=== PATIENT | female | born 1980 | race Caucasian/White ===

== ENCOUNTER 2017-07-02 13:12 | Emergency (ER) | END 2017-07-02 17:23 | disposition home or self-care (01) | DX: E86.0 Dehydration (principal); E87.2 Acidosis; C50.919 Malignant neoplasm of unspecified site of unspecified female breast | CPT/HCPCS: 36415; 71010; 71275; 80053; 81001; 83605; 83880; 84484; 84703; 85025; 85610; 85730; 87040; 87086; 93005; J7030; J7040; Q9967; Z7502; Z7610 ==

== ENCOUNTER 2017-10-20 08:00 | Inpatient (IN) | payer OTHER ==
[2017-10-19 14:49] VITALS: Ht 161.3 cm; Wt 50.3 kg
[2017-10-20] VITALS (16 sets, daily range): BP systolic 121–155; BP diastolic 67–88; PULSE 52–98; RESP 16–20
[~2017-10-20] VITALS: Ht 161.3 cm; Wt 50.3 kg
[~2017-10-20 08:00] MED LIST: CEFAZOLIN 2 GM/50 ML (PMX) 50 ML IVPB SCH; IBUP-725; PREN1TAB49 PO; SOD CHLORIDE 0.9% 1,000 ML IV SCH; [UNRECOGNIZED DRUG - CODE]
[2017-10-20 10:32] LABS: BASOPHIL # 0.1 10^3/ul (0.0-0.1); BASOPHILS % 0.8 % (0.0-2.0); EOSINOPHILS # 0.1 10^3/ul (0.0-0.5); EOSINOPHILS % 2.2 % (0.0-7.0); HEMATOCRIT 30.4 % (37.0-47.0); HEMOGLOBIN 9.7 g/dl (12.0-16.0); LYMPHOCYTES # 2.2 10^3/ul (0.8-2.9); LYMPHOCYTES % 37.4 % (15.0-51.0); MEAN CORPUSCULAR HEMOGLOBIN 28.2 pg (29.0-33.0); MEAN CORPUSCULAR HGB CONC 31.9 g/dl (32.0-37.0); MEAN CORPUSCULAR VOLUME 88.4 fl (82.0-101.0); MEAN PLATELET VOLUME 10.5 fl (7.4-10.4); MONOCYTE # 0.5 10^3/ul (0.3-0.9); MONOCYTES % 8.1 % (0.0-11.0); NEUTROPHIL # 3.1 10^3/ul (1.6-7.5); NEUTROPHILS % 51.3 % (39.0-77.0); PLATELET COUNT 408 10^3/UL (140-415); RED BLOOD COUNT 3.44 10^6/ul (4.20-5.40); RED CELL DISTRIBUTION WIDTH 16.2 % (11.5-14.5); WHITE BLOOD COUNT 5.9 10^3/ul (4.8-10.8)
[2017-10-20 10:35] LABS: INR 0.98; PROTIME 13.1 Sec (11.9-14.9)
[2017-10-20 10:38] LABS: ALBUMIN 4.4 g/dl (3.3-4.9); ALBUMIN/GLOBULIN RATIO 1.15; BILIRUBIN,INDIRECT 0.3 mg/dl (0-1.1); BILIRUBIN,TOTAL 0.3 mg/dl (0.2-1.3); TOTAL PROTEIN 8.2 g/dl (6.1-8.1)
[2017-10-20 10:39] LABS: CALCIUM 9.9 mg/dl (8.4-10.2); CREATININE 0.75 mg/dl (0.44-1.00); POTASSIUM 3.9 mmol/L (3.5-5.1)
[2017-10-20] MEDS ORDERED: MIDAZOLAM 1 MG/ML 2 ML INJ ONE (13:59)
[2017-10-20] MEDS ORDERED: METOCLOPRAMIDE 10 MG INJ ONE (13:59)
[2017-10-20] MEDS ORDERED: PROPOFOL 20 ML ONE (14:08)
[2017-10-20] MEDS ORDERED: NEOSTIGMINE 3 MG/3 ML SYRINGE ONE (14:08)
[2017-10-20] MEDS ORDERED: ROCURONIUM 50 MG INJ ONE (14:08)
[2017-10-20] MEDS ORDERED: CEFAZOLIN 1 GM INJ ONE (14:09)
[2017-10-20] MEDS ORDERED: ONDANSETRON 4 MG INJ ONE (14:43)
[2017-10-20] MEDS ORDERED: DIPHENHYDRAMINE 50 MG INJ IV PRN (15:00)
[2017-10-20] MEDS ORDERED: OXYCODONE/ACETAMINOPHEN (5/325) TAB PO PRN (15:00)
[2017-10-20] MEDS ORDERED: HYDROmorphONE (0.2 MG/ML) 10ML SYG IV PRN ×2 (15:00)
[2017-10-20] MEDS ORDERED: MEPERIDINE 25 MG INJ IV PRN (15:00)
[2017-10-20] MEDS ORDERED: ONDANSETRON 4 MG INJ IV PRN (15:00)
[2017-10-20] MEDS ORDERED: METOCLOPRAMIDE 10 MG INJ IV PRN (15:00)
--- NOTE | 2017-10-20 15:25 | SIPON ---
Date/Time of Note Date/Time of Note DATE: 10/20/17 TIME: 15:24 Operative Report Preoperative Diagnosis Locally advanced right breast cancer Postoperative Diagnosis Same Operation/Procedure Performed Right modified radical mastectomy Surgeon see signature line medical assistant supervisor Dr Levi Anesthesia: general Estimated blood loss: 10 - 50 ml's Transfusion Required none Specimen Right breast and axillary contents Grafts/Implants none Complications none BEAU TOUSSAINT MD Oct 20, 2017 15:25
[2017-10-20] MEDS ORDERED: ACETAMINOPHEN 1000MG/100ML IV 100 ML IVPB PRN (15:30)
[2017-10-20] MEDS: ONDANSETRON 4 MG INJ IV PRN ×2 (15:40→21:37)
[2017-10-20] MEDS: HYDROmorphONE (0.2 MG/ML) 10ML SYG IV PRN ×3 (16:07→16:37)
--- NOTE | 2017-10-20 16:26 | OPR ---
DATE OF OPERATION: 10/20/2017 PREOPERATIVE DIAGNOSIS: Locally advanced invasive cancer, right breast. POSTOPERATIVE DIAGNOSIS: Locally advanced invasive cancer, right breast. PROCEDURE: Right modified radical mastectomy. ANESTHESIA: General. ANESTHESIOLOGIST: Dr. Christopher. SURGEON: Gabriele Rubin MD ASSISTANTS: Dr. Kevon Whitehead and Dr. David Lawrence INDICATIONS FOR PROCEDURE: The patient is a very unfortunate 36-year-old female who developed an en larging mass in her right breast. She did not initially seek medical attention for reasons that are not clear. Eventually, she underwent evaluation, the diagnosis was made and she was treated with n eoadjuvant chemotherapy with only a fair response. She now presents for definitive surgical treatme nt. She is consented for right modified radical mastectomy. DESCRIPTION OF PROCEDURE: The patient was brought to the operating theater, placed under general an esthesia. The right breast and axillary region were prepped and draped in the usual sterile fashion . The large mass was palpated. An elliptical incision was demarcated with marking pen around the n ipple-areolar complex, including a significant portion of the skin of the breast. The incision was carried out with a 15 blade scalpel. Subcutaneous tissue was dissected with cautery. The skin edge s were then elevated with Allis-Duke clamps, and skin flaps were created in a sequential fashion us ing cautery, first superiorly to the clavicle, then nearly to the sternal border, inferiorly to the inframammary fold and laterally until the latissimus dorsi muscle had been identified throughout its course. Mastectomy then took place from medial to lateral using cautery. At the border of the pec toralis major muscle, the pectoralis minor muscle was identified. The clavipectoral fascia was inci sed with blunt dissection along the chest wall. The long thoracic nerve was identified and kept out of harm's way. More superiorly, the axillary vein was identified and dissected from medial to late ral. The thoracodorsal neurovascular bundle was identified and kept out of harm's way. Node-bearin g tissue between the 2 nerves was then harvested with the LigaSure device. Final connective tissue attachment to the latissimus dorsi muscle was then transected with cautery. Specimen was removed, o riented and sent for permanent pathologic analysis. Additional axillary lymph nodes were harvested separately, also with the LigaSure device and sent separately for pathologic analysis. The wound wa s then irrigated. Minimal bleeding was controlled with cautery. Two #10 flat Wenceslao-Onofre drains were then brought through the right mid axillary line. One was cut to size and laid within the axil la. The other was laid over the pectoralis major muscle. Both drains were secured in place with 2- 0 nylon suture. The wound was further irrigated. Minimal bleeding was controlled with cautery, and the skin was reapproximated with a deep dermal layer of 4-0 Vicryl sutures, followed by final skin approximation with 5-0 PDS suture. Dermabond was then applied. The patient tolerated the procedure well. The estimated blood loss was 50 mL. There were no complications, and the patient was transp orted in stable condition to the recovery room where a circumferential compression dressing was appl ied. Dictated By: GABRIELE RUBIN MD TL/ROSLYN Conf#: [id number] DID#: [id number] CC: GABRIELE RUBIN MD; DAVID LAWRENCE MD; KEVON WHITEHEAD MD;*EndCC*
--- NOTE | 2017-10-20 17:06 | HP ---
Date/Time of Note Date/Time of Note DATE: 10/20/17 TIME: 16:15 Assessment/Plan VTE Prophylaxis VTE Prophylaxis Intervention: SCD's Lines/Catheters IV Catheter Type (from Nrsg): Peripheral IV Assessment/Plan Assessment/Plan 36-year-old female: 1. Status post radical right mastectomy, POD#0 Patient has [address], dressing in place. Pain control Follow-up recommendations from Dr. Rubin. 2. Right breast carcinoma, HER-2 positive, status post neoadjuvant chemotherapy as of 08/22/17. Patient has a persistent large mass and right axillary metastasis per notes from from surgery, requiring for her to have a radical right mastectomy. Follow-up with outpatient oncologist at discharge. 3. Anxiety disorder: Benzodiazepines as needed. Prophylaxis: SCDs for DVT prophylaxis, Pepcid for GI prophylaxis Disposition: Admit to [facility], observation overnight, pain control. HPI/ROS Admit Date/Time Admit Date/Time Oct 20, 2017 at 08:33 Hx of Present Illness Chief complaint: Elective right mastectomy History of presenting illness: 36-year-old female with history of anxiety, recent diagnosis of right breast mass and right breast cancer HER-2 positive, status post neoadjuvant chemotherapy that she has completed as of 08/22/17 and was brought in for a right radical mastectomy which was done today by Dr. Rubin. Patient is being admitted to medical surgical bed postoperatively, mainly for pain control. She has 2 MILLY drain on her right chest wall postmastectomy. She does not have any other significant medical diagnoses except for reported anxiety. ROS Constitutional: other (Postop pain, right chest wall status post right mastectomy) Eyes: no complaints ENT: no complaints Respiratory: no complaints Cardiovascular: no complaints Gastrointestinal: no complaints Genitourinary: no complaints Musculoskeletal: no complaints Skin: no complaints Neurologic: no complaints Endocrine: no complaints Lymphatic: no complaints Psychological: anxiety PMH/Family/Social Past Medical History Anxiety disorder Right breast CA large breast mass and metastasis to the right axilla Past Surgical History Status post Family History Significant Family History: no pertinent family hx Social History Alcohol Use: none Smoking Status: Current every day smoker (1 pack per week) Drug Use: none Exam/Review of Systems Vital Signs Vitals Vital Signs Date Time Temp Pulse Resp B/P Pulse Ox O2 Delivery O2 Flow Rate FiO2 10/20/17 16:04 52 16 147/74 100 Room Air 10/20/17 15:30 98.1 Exam Constitutional: other (Sedated coming out of anesthesia) Psych: no complaints Respiratory: clear to auscultation, normal air movement Cardiovascular: nl pulses, regular rate and rhythm Gastrointestinal: non-tender, soft Musculoskeletal: nl extremities to inspection Extremities: normal pulses, other (No edema, clubbing or cyanosis) Neurological: AIRCRAFT ARMORER II-XII intact, lethargic (Still under some sedation), nl mental status, nl speech Additional Comments Status post right mastectomy, [address], dressing in place on the right chest wall. Labs Result Diagram: 10/20/17 0956 10/20/17 0956 Medications Medications Current Medications Sodium Chloride (NS) 1,000 ml @ 75 mls/hr [id number] IV ; Start 10/20/17 at 06:30 ; Stop 10/20/17 at 23:00 Ondansetron HCl 4 mg 4 mg Q6H PRN IV NAUSEA AND/OR VOMITING Last administered on 10/20/17t 15:40; Admin Dose 4 MG; Start 10/20/17 at 15:30 Potassium Chloride/Dextrose/ Sod Cl (D5-1/2ns + KCl 20 Meq) 1,000 ml @ 125 mls/ hr Q8H IV ; Start 10/20/17 at 15:26 Morphine Sulfate 2 mg 2 mg Q1H PRN IV PAIN; Start 10/20/17 at 15:30 Acetaminophen (Ofirmev 1000mg/ 100ml Iv) 100 ml @ 400 mls/hr Q6H PRN IVPB PAIN ; Start 10/20/17 at 15:30 Procedures Procedures Status post right radical mastectomy VIRGINIA CARMONA Oct 20, 2017 16:25
[2017-10-20] MEDS: D5W-0.45 NACL + KCL 20 MEQ 1,000 ML IV SCH ×2 (17:41→23:26)
[2017-10-20] MEDS: FAMOTIDINE 20 MG TAB PO SCH (21:00)
[2017-10-20] MEDS: morphine 2 MG INJ IV PRN (23:31)
[2017-10-21] VITALS (11 sets, daily range): BP systolic 107–138; BP diastolic 58–78; PULSE 60–110; RESP 17–20
[2017-10-21] MEDS: D5W-0.45 NACL + KCL 20 MEQ 1,000 ML IV SCH ×4 (02:08→23:26)
[2017-10-21] MEDS: morphine 2 MG INJ IV PRN ×2 (04:15→10:32)
[2017-10-21 05:21] LABS: ABNORMAL IP MESSAGE 1; BASOPHILS % 0.2 % (0.0-2.0); HEMATOCRIT 18.9 % (37.0-47.0); LYMPHOCYTES # 1.3 10^3/ul (0.8-2.9); MEAN CORPUSCULAR HEMOGLOBIN 28.1 pg (29.0-33.0); MEAN CORPUSCULAR HGB CONC 32.3 g/dl (32.0-37.0); MEAN CORPUSCULAR VOLUME 87.1 fl (82.0-101.0); MEAN PLATELET VOLUME 10.5 fl (7.4-10.4); MONOCYTE # 0.9 10^3/ul (0.3-0.9); MONOCYTES % 6.7 % (0.0-11.0); NEUTROPHIL # 10.7 10^3/ul (1.6-7.5); NEUTROPHILS % 82.9 % (39.0-77.0); PLATELET COUNT 342 10^3/UL (140-415); RED BLOOD COUNT 2.17 10^6/ul (4.20-5.40); WHITE BLOOD COUNT 12.9 10^3/ul (4.8-10.8)
[2017-10-21 05:45] LABS: HEMOGLOBIN 6.1 g/dl (12.0-16.0); POSITIVE DIFF @See below
[2017-10-21 05:59] LABS: CALCIUM 7.7 mg/dl (8.4-10.2); CREATININE 0.72 mg/dl (0.44-1.00); POTASSIUM 4.3 mmol/L (3.5-5.1)
[2017-10-21 07:35] LABS: ANISOCYTOSIS 1+ (0-0); MICROCYTOSIS 1+ (0-0); MONOCYTES % (M) 1 % (0-11); OVALOCYTES 1+ (0-0); PLATELET ESTIMATE NORMAL; POIKILOCYTOSIS 1+ (0-0)
[2017-10-21] MEDS: FAMOTIDINE 20 MG TAB PO SCH ×2 (08:16→20:36)
[2017-10-21] MEDS ORDERED: MAGNESIUM CHLORIDE (SR) 64 MG TAB PO SCH (10:00)
[2017-10-21] MEDS ORDERED: MAGNESIUM SULFATE 2 GM/50 ML 50 ML IVPB ONE ×2 (10:00→21:00)
--- NOTE | 2017-10-21 10:04 | PN ---
Date/Time of Note Date/Time of Note DATE: 10/21/17 TIME: 10:01 Assessment/Plan VTE Prophylaxis VTE Prophylaxis Intervention: SCD's Lines/Catheters IV Catheter Type (from Nrsg): Peripheral IV Central line still needed: No Urinary Cath still in place: No Assessment/Plan Assessment/Plan 36-year-old female: 1. Status post radical right mastectomy, POD#1 Patient has [address], dressing in place. Pain control Follow-up recommendations from Dr. Childress. As her hemoglobin dropped to 6.0, she will be receiving 2 units of packed red blood cells. 2. Right breast carcinoma, HER-2 positive, status post neoadjuvant chemotherapy as of 08/22/17. Patient has a persistent large mass and right axillary metastasis per notes from from surgery, requiring for her to have a radical right mastectomy. Follow-up with outpatient oncologist at discharge. 3. Anxiety disorder: Benzodiazepines as needed. Prophylaxis: SCDs for DVT prophylaxis, Pepcid for GI prophylaxis Disposition: The patient will remain in the hospital for another night. Obtain repeat hemoglobin in the morning. Continue pain management. Subjective 24 Hr Interval Summary Free Text/Dictation Patient complained of overall body pain and inability to sleep. She feels very weak after surgery. Sporting her hemoglobin dropped to 6.0. This was repeated with the laboratory. Will be receiving Benadryl and Tylenol as well as 2 units of packed red blood cells. Furthermore, her magnesium level was slightly low at 1.6 and this will be replaced intravenously as well. Her was at the bedside and the plan of care was updated with the both of them. Constitutional: other (weak) Eyes: no complaints Respiratory: no complaints Exam/Review of Systems Vital Signs Vitals Vital Signs Date Time Temp Pulse Resp B/P Pulse Ox O2 Delivery O2 Flow Rate FiO2 10/21/17 08:34 97.8 98 18 116/68 92 10/21/17 04:00 Nasal Cannula 3.0 Intake and Output 10/20/17 10/20/17 10/21/17 15:00 23:00 07:00 Intake Total 1110 ml 1615 ml Output Total 5 ml 110 ml 380 ml Balance -5 ml 1000 ml 1235 ml Exam Constitutional: alert, oriented Psych: anxiety Head: normocephalic Eyes: nl conjunctiva ENMT: nl external ears & nose Neck: supple Respiratory: clear to auscultation Cardiovascular: regular rate and rhythm Gastrointestinal: soft Extremities: normal pulses Neurological: STONE PLANER II-XII intact Results Result Diagram: 10/21/17 0459 10/21/17 0445 Results 24 hrs Laboratory Tests Test 10/21/17 04:45 10/21/17 04:59 White Blood Count 12.9 #H Red Blood Count 2.17 #L Hemoglobin 6.1 #*L 6.0 *L Hematocrit 18.9 #L Mean Corpuscular Volume 87.1 Mean Corpuscular Hemoglobin 28.1 L Mean Corpuscular Hemoglobin Concent 32.3 Red Cell Distribution Width 16.0 H Platelet Count 342 Mean Platelet Volume 10.5 H Neutrophils % 82.9 H Segmented Neutrophils % (Manual) 90 H Lymphocytes % 10.0 L Lymphocytes % (Manual) 9 L Monocytes % 6.7 Monocytes % (Manual) 1 Eosinophils % 0.0 Basophils % 0.2 Nucleated Red Blood Cells % 0.0 Neutrophils # 10.7 H Absolute Lymphocytes (Manual) 1.1 Lymphocytes # 1.3 Monocytes # 0.9 Absolute Monocytes (Manual) 0.1 L Eosinophils # 0.0 Basophils # 0.0 Nucleated Red Blood Cells # 0.0 Pathologist Review (Hematology) Y Platelet Estimate NORMAL Poikilocytosis 1+ Anisocytosis 1+ Microcytosis 1+ Ovalocytes 1+ Sodium Level 135 Potassium Level 4.3 Chloride Level 106 Carbon Dioxide Level 24 Anion Gap 9 # Blood Urea Nitrogen 11 Creatinine 0.72 Glucose Level 164 Calcium Level 7.7 L Magnesium Level 1.6 L Medications Medications Current Medications Ondansetron HCl 4 mg 4 mg Q6H PRN IV NAUSEA AND/OR VOMITING Last administered on 10/20/17 21:37; Admin Dose 4 MG; Start 10/20/17 at 15:30 Potassium Chloride/Dextrose/ Sod Cl (D5-1/2ns + KCl 20 Meq) 1,000 ml @ 125 mls/ hr Q8H IV Last administered on 10/21/17 02:08; Admin Dose 125 MLS/HR; Start 10/20/17 at 15:26 Morphine Sulfate 2 mg 2 mg Q1H PRN IV PAIN Last administered on 10/21/17 04:15 ; Admin Dose 2 MG; Start 10/20/17 at 15:30 Acetaminophen (Ofirmev 1000mg/ 100ml Iv) 100 ml @ 400 mls/hr Q6H PRN IVPB PAIN ; Start 10/20/17 at 15:30 Famotidine 20 mg 20 mg BID PO Last administered on 10/21/17t 08:16; Admin Dose 20 MG; Start 10/20/17 at 21:00 Magnesium Sulfate 50 ml @ 25 mls/hr ONCE ONCE IVPB ; Start 10/21/17 at 10:00; Stop 10/21/17 at 11:59 Magnesium Sulfate (Magnesium Sulfate 2 Gm/50 ml) 50 ml @ 25 mls/hr ONCE ONCE IVPB ; Start 10/21/17 at 21:00; Stop 10/21/17 at 22:59 Magnesium Chloride (Mag 64) 128 mg BID PO ; Start 10/21/17 at 10:00 TIMOTHY HERNÁNDEZ MD Oct 21, 2017 10:04
[2017-10-21] MEDS ORDERED: ACETAMINOPHEN 500 MG TAB PO STA (10:05)
[2017-10-21] MEDS ORDERED: DIPHENHYDRAMINE 50 MG INJ IV ONE (10:30)
--- NOTE | 2017-10-21 13:50 | PN ---
DATE: 10/21/2017 CHIEF COMPLAINT: Postop day #1, status post right breast modified radical mastectomy. SUBJECTIVE: The patient states that she is weak. No nausea, no vomiting. Has been out of bed to bathroom once today and has been feeling slightly dizzy. OBJECTIVE: GENERAL: The patient is awake, alert, oriented x3. VITAL SIGNS: Temperature 98.2, likely normal. Heart rate maximum 115, minimum 87, respirations 18, blood pressure 116/68, saturation between 92% and up to 100 % with 2 liters nasal cannula. LABORATORY DATA: Today at 4:45 a.m., lab was done. Hemoglobin was reported to be 6.1, then was repeated again and that was reported to be 6. On admission, hemoglobin was 9.7. Platelet count is 342. WBC today is 12,900 with 82% neutrophils. As I mentioned, hemoglobin 6.1, hematocrit 18.9; on admission, hemoglobin 9.7, hematocrit 30.4. Therefore, patient has lost a drop in hemoglobin due to either bleeding during the operation or bleeding under the flap or combination of both. Chemistry: Sodium, potassium, BUN, creatinine normal. Magnesium was slightly low at 1.6, which has been ordered to be replaced by primary care physician. HEART: Regular. LUNGS: Clear. The dressing is intact, slightly tight, appears to be a slight bulging at the outer pole of the incision under the superior flap, but I think this is due to tightness of the Jeff bandage. PLAN: The patient is about to receive a unit of blood. As soon as the unit of blood is finished, I'm going to sit her up and redo the dressing and loosen the dressing and make sure that there is no hematoma under the flap. Meanwhile, the patient is going to stay in the hospital at least today, and recheck hemoglobin and hematocrit tomorrow and see how the patient is doing by tomorrow. Dictated By: KAYCEE WHITEHEAD MD PS/ROSLYN Conf#: [id number] DID#: [id number] CC: BEAU TOUSSAINT MD;*EndCC* MTDD
[2017-10-22 01:00] VITALS: BP 125/60; PULSE 62; RESP 18
[2017-10-22] MEDS ORDERED: HYDROCODONE/APAP (5/325) TAB PO PRN ×2 (01:30)
[2017-10-22] MEDS ORDERED: MAGNESIUM SULFATE 2 GM/50 ML 50 ML IVPB ONE (01:30)
[2017-10-22 01:43] LABS: BASOPHILS % 0.5 % (0.0-2.0); EOSINOPHILS # 0.1 10^3/ul (0.0-0.5); EOSINOPHILS % 1.1 % (0.0-7.0); HEMATOCRIT 25.4 % (37.0-47.0); HEMOGLOBIN 8.2 g/dl (12.0-16.0); LYMPHOCYTES # 3.5 10^3/ul (0.8-2.9); LYMPHOCYTES % 39.4 % (15.0-51.0); MEAN CORPUSCULAR HEMOGLOBIN 27.9 pg (29.0-33.0); MEAN CORPUSCULAR HGB CONC 32.3 g/dl (32.0-37.0); MEAN CORPUSCULAR VOLUME 86.4 fl (82.0-101.0); MEAN PLATELET VOLUME 10.4 fl (7.4-10.4); MONOCYTES % 11.8 % (0.0-11.0); NEUTROPHIL # 4.2 10^3/ul (1.6-7.5); PLATELET COUNT 233 10^3/UL (140-415); RED BLOOD COUNT 2.94 10^6/ul (4.20-5.40); WHITE BLOOD COUNT 8.9 10^3/ul (4.8-10.8)
[2017-10-22 02:26] VITALS: BP 140/72; RESP 18
[2017-10-22 04:30] VITALS: BP 126/58; PULSE 70; RESP 17
[2017-10-22] MEDS: D5W-0.45 NACL + KCL 20 MEQ 1,000 ML IV SCH (07:26)
[2017-10-22 07:52] VITALS: BP 142/73; RESP 18
[2017-10-22 08:48] LABS: BASOPHIL # 0.1 10^3/ul (0.0-0.1); BASOPHILS % 0.7 % (0.0-2.0); EOSINOPHILS # 0.1 10^3/ul (0.0-0.5); EOSINOPHILS % 1.5 % (0.0-7.0); HEMATOCRIT 27.1 % (37.0-47.0); HEMOGLOBIN 8.9 g/dl (12.0-16.0); LYMPHOCYTES # 2.9 10^3/ul (0.8-2.9); LYMPHOCYTES % 36.3 % (15.0-51.0); MEAN CORPUSCULAR HEMOGLOBIN 28.2 pg (29.0-33.0); MEAN CORPUSCULAR HGB CONC 32.8 g/dl (32.0-37.0); MEAN CORPUSCULAR VOLUME 85.8 fl (82.0-101.0); MEAN PLATELET VOLUME 10.1 fl (7.4-10.4); MONOCYTE # 0.8 10^3/ul (0.3-0.9); MONOCYTES % 10.4 % (0.0-11.0); NEUTROPHIL # 4.1 10^3/ul (1.6-7.5); NEUTROPHILS % 50.9 % (39.0-77.0); PLATELET COUNT 247 10^3/UL (140-415); RED BLOOD COUNT 3.16 10^6/ul (4.20-5.40); RED CELL DISTRIBUTION WIDTH 16.5 % (11.5-14.5); WHITE BLOOD COUNT 8.1 10^3/ul (4.8-10.8)
[2017-10-22] MEDS: FAMOTIDINE 20 MG TAB PO SCH (09:02)
[2017-10-22] MEDS: morphine 2 MG INJ IV PRN (09:04)
[2017-10-22 09:28] LABS: CALCIUM 7.9 mg/dl (8.4-10.2); CREATININE 0.64 mg/dl (0.44-1.00); POTASSIUM 3.6 mmol/L (3.5-5.1)
--- NOTE | 2017-10-22 17:21 | PN ---
DATE: 10/22/2017 Status post right modified radical mastectomy, axillary dissection, postop day # 2. SUBJECTIVE: Feels much better, has been out of bed, tolerating diet, no dizziness. OBJECTIVE VITAL SIGNS: 98.1, heart rate 70, BP 126/58, saturation 100% room air. LABORATORY DATA: WBC 8100 with 50% neutrophils. Hemoglobin has increased from 6 to 8.9 and hematocrit 27.1. This is after transfusion of 2 units of packed cells. Wenceslao-Onofre drainage serosanguineous, slightly bloody, drainage from 2 of them, in the past 24 hours has been totally 65 mL. Urine output 1400 mL. Chemistry of the blood: BUN, creatinine, sodium, and potassium normal. PHYSICAL EXAMINATION: HEART: Regular. LUNGS: Clear. EXTREMITIES: Moves her right upper extremity completely. The Bias dressing is intact. It is not too tight. As was mentioned, Wenceslao-Onofre drainage in the tubing is serosanguineous and more towards bloody, but is not pure blood. ASSESSMENT: This is a 36-year-old female who on Monday, 2 days ago, underwent modified radical mastectomy with axillary dissection for the advanced cancer of the right breast. The patient is status post neoadjuvant therapy. On the first day postop, the hemoglobin was found to be dropped to 6, so required blood transfusion 2 units. The patient was dizzy and was weak, but today patient has improved much after 2 units of blood transfusion. She is alert, awake fully. No dizziness, feels stronger. The drainage from 2 Wenceslao-Noofre drains is only 65 mL. It is possible that there is a small amount of hematoma under the flaps of the breast skin, but it is not too much to require evacuation. PLAN: The patient from surgical point of view can be discharged to be followed by Dr. Rubin in his office. The patient to call the office and make an appointment. The patient to continue with the Wenceslao-Onofre drain. The patient 's was instructed how to take care of Wenceslao-Onofre and how to measure them and record them every day. Dr. Cotter from [facility] or any of the representatives will see the patient today, and if they want, they can discharge the patient. As was mentioned, patient is discharged from surgical point of view. Dictated By: KAYCEE WHITEHEAD MD PS/NTS Conf#: [id number] [facility]#: [id number] CC: BEAU RUBIN MD;*EndCC* MTDD
--- NOTE | 2017-10-22 18:19 | DS ---
DATE OF ADMISSION: 10/20/2017 DATE OF DISCHARGE: 10/22/2017 DISCHARGE DIAGNOSES: 1. Right-sided advanced breast cancer, HER2-positive, status post neoadjuvant chemotherapy, complet ed on 08/22/2017. She underwent a right radical mastectomy by Dr. Rubin with drain placement. 2. Anxiety disorder: Improved. HOSPITAL COURSE: The patient is a very pleasant, 36-year-old, Armenian female with a history of anxie ty and recent diagnosis of a right breast mass and right breast cancer with HER2-positive, status po st neoadjuvant chemotherapy that she completed on 08/22/2017. She was electively admitted on 2016 for a right radical mastectomy by Dr. Rubin. Overall, the patient fared well other than having a drop in her hemoglobin on postoperative day 1. Her hemoglobin decreased to approximately 6.0. S he received 2 units of packed red blood cells, and the area was examined by Dr. Levi. After the b lood transfusion, the patient's hemoglobin increased significantly to 8.9. Her preoperative level w as 9.7. The patient was feeling markedly better without any dizziness or weakness. Her pain was we ll controlled on the day of discharge. She was also tolerating a regular diet. Overall, the nolan juarez was doing as well and she, as well as her , had expressed the desire to go home. As the aamir zarate's pain was well controlled on oral medications and she was ambulating without difficulty, a sherron int decision was made to discharge her. Dr. Levi was in agreement with this plan of care as well. CONDITION ON DISCHARGE: Stable. DISPOSITION: Discharged to home with . DISCHARGE MEDICATIONS: 1. [place] 5/325 one p.o. q.6 hours p.r.n. pain, 30 pills were administered without refills. 2. Atarax 25 mg 1 p.o. q.6 hours p.r.n. itching, 60 pills were given. FOLLOWUP VISITS: The patient is to follow up with Dr. Hernandez on 10/27/[address] Rubin on 1 01/01/2017. Dictated By: TIMOTHY HERNÁNDEZ MD SH/NTS Conf#: [id number] DID#: [id number] CC: BEAU RUBIN MD;*EndCC*
[2017-10-24 17:32] LABS: PATH REVIEW CH
== END 2017-10-22 13:05 | disposition home or self-care (01) | DRG 580 ==
LOC: EDSTATUS 08:00 → REC 08:33 → MS1 16:40
PROVIDERS: ADMIT Surgery Surgical Oncology; ATTEND Surgery Surgical Oncology
PROC: 07B50ZX Excision of Right Axillary Lymphatic, Open Approach, Diagnostic (ICD-10-PCS; 2017-10-20)
PROC: 0HTT0ZZ Resection of Right Breast, Open Approach (ICD-10-PCS; principal; 2017-10-20 11:30)
PROC: 30233N1 Transfusion of Nonautologous Red Blood Cells into Peripheral Vein, Percutaneous Approach (ICD-10-PCS; 2017-10-21)
DX: C50.911 Malignant neoplasm of unspecified site of right female breast (principal); C77.3 Secondary and unspecified malignant neoplasm of axilla and upper limb lymph nodes; R71.0 Precipitous drop in hematocrit; F41.9 Anxiety disorder, unspecified; Z72.0 Tobacco use
CPT/HCPCS: 36430; 80048; 80053; 83735; 84703; 85018; 85025; 85610; 85730; 86850; 86900; 86901; 86920; 88307; J0690; J1170; J1200; J2175; J2250; J2270; J2405; J2710; J2765; J3475; J3480; J7030; P9016

== ENCOUNTER 2017-11-04 20:11 | Emergency (ER) | payer SELFPAY ==
[~2017-11-04] VITALS: Ht 157.5 cm; Wt 51.6 kg
[2017-11-04 20:16] VITALS: Ht 157.5 cm; Wt 51.6 kg
== END 2017-11-04 22:48 | disposition left against medical advice (07) ==
LOC: E/R 20:11
DX: Z53.21 Procedure and treatment not carried out due to patient leaving prior to being seen by health care provider (principal)

== ENCOUNTER 2017-11-10 12:46 | Emergency (ER) | payer OTHER ==
[~2017-11-10] VITALS: Wt 51.7 kg
[2017-11-10] MEDS ORDERED: KETOROLAC 15 MG INJ IV STA (13:55)
[2017-11-10] MEDS ORDERED: SOD CHLORIDE 0.9% 1,000 ML IV STA (13:55)
[2017-11-10 14:21] LABS: BASOPHIL # 0.1 10^3/ul (0.0-0.1); BASOPHILS % 0.5 % (0.0-2.0); EOSINOPHILS # 0.2 10^3/ul (0.0-0.5); EOSINOPHILS % 2.2 % (0.0-7.0); HEMATOCRIT 34.4 % (37.0-47.0); HEMOGLOBIN 10.6 g/dl (12.0-16.0); LYMPHOCYTES # 2.3 10^3/ul (0.8-2.9); LYMPHOCYTES % 24.7 % (15.0-51.0); MEAN CORPUSCULAR HGB CONC 30.8 g/dl (32.0-37.0); MEAN PLATELET VOLUME 10.6 fl (7.4-10.4); MONOCYTE # 0.7 10^3/ul (0.3-0.9); MONOCYTES % 7.6 % (0.0-11.0); NEUTROPHILS % 64.7 % (39.0-77.0); PLATELET COUNT 297 10^3/UL (140-415); RED BLOOD COUNT 3.78 10^6/ul (4.20-5.40); RED CELL DISTRIBUTION WIDTH 15.1 % (11.5-14.5); WHITE BLOOD COUNT 9.2 10^3/ul (4.8-10.8)
[2017-11-10] MEDS ORDERED: HYDR-902 PO (14:21)
[2017-11-10] MEDS ORDERED: HYDR2TAB36 PO (14:21)
[2017-11-10] MEDS ORDERED: AMLO5TAB4 PO (14:22)
[2017-11-10 14:36] LABS: INR 0.9; PROTIME 12.2 Sec (11.9-14.9)
[2017-11-10 14:41] LABS: CALCIUM 9.1 mg/dl (8.4-10.2); CREATININE 0.69 mg/dl (0.44-1.00); POTASSIUM 3.3 mmol/L (3.5-5.1)
[2017-11-10] MEDS ORDERED: HYDROmorphONE 1 MG/ML SYG IV STA (14:45)
[2017-11-10] MEDS ORDERED: CEPH500C PO (14:45)
--- NOTE | 2017-11-10 14:50 | ERD ---
ER Documentation Chief Complaint Chief Complaint WOUND CHECK FROM RECENT MASTECTOMY HPI 36-year-old woman complains of right lateral breast pain status post radical mastectomy on the right. She has [address] but states the sutures came out earlier today and there was some discharge around the tubes. She did not use her oral analgesics today. She denies fevers or chills, no chest pain or shortness of breath, no headache or blurry vision. No increased redness around the postop site or right chest. ROS All systems reviewed and are negative except as per history of present illness. Medications Home Meds Active Scripts Cephalexin* (Cephalexin*) 500 Mg Capsule, 500 MG PO Q8 for 5 Days, #15 CAP Prov:EMILIE SMITH MD 11/10/17 Reported Medications Amlodipine Besylate* (Norvasc*) 5 Mg Tablet, 5 MG PO DAILY, TAB 11/10/17 Hydromorphone Hcl* (Dilaudid*) 2 Mg Tablet, 2 MG PO Q2 Y for PAIN, TAB 11/10/17 Hydrocodone/Acetaminophen ([place] 10-325 Tablet) 1 Each Tablet, 1 EACH PO DAILY Y for SEVERE PAIN LEVEL 7-10, TAB 11/10/17 Allergies Allergies: Coded Allergies: No Known Allergies (Verified Allergy, Mild, 11/10/17) PMhx/Soc Breast cancer, hypertension Medical and Surgical Hx: pt denies Surgical Hx History of Surgery: Yes (right mastectomy 10/20/2017) Anesthesia Reaction: No Hx Neurological Disorder: No Hx Respiratory Disorders: No Hx Cardiac Disorders: No Hx Psychiatric Problems: No Hx Miscellaneous Medical Probl: No Hx Alcohol Use: No Hx Substance Use: No Hx Tobacco Use: No Smoking Status: Never smoker FmHx Family History: No diabetes Physical Exam Vitals Vital Signs Date Time Temp Pulse Resp B/P Pulse Ox O2 Delivery O2 Flow Rate FiO2 11/10/17 12:51 99.2 99 18 135/82 100 Physical Exam GENERAL: Well-developed, well-nourished, well-hydrated, in no apparent distress , looks nontoxic in appearance HEENT: Moist mucous membranes, pink conjunctiva, no cervical spine tenderness or step-off deformities, no goiter, no jaundice or icterus, extraocular movements intact without pain. No submandibular induration, and no pharyngeal erythema NEURO: Alert and oriented 3, cranial nerves II through XII intact bilaterally, pupils equal round reactive to light, no focal deficits or facial asymmetry, sensation intact distally Strength 5/5 in upper and lower extremities bilaterally CARDIAC: Regular rate and rhythm, no murmurs rubs or gallops LUNGS: Clear bilaterally no wheezing crackles or stridor ABDOMEN: Soft nontender, no guarding, no rigidity, no rebound, no psoas sign no obturator sign. Normoactive bowel sounds SKIN: Warm and dry to touch, there is mild serosanguineous discharge around the tubes to the right lateral chest where the tubes enter the soft tissue no purulent discharge noted. There is no surrounding skin induration or erythema. There is also a larger incision site across the right chest where the right breast used to be and not incision is clean and dry without dehiscence. EXTREMITIES: No clubbing cyanosis or edema, calves are bilaterally symmetrical, no Homans sign, no popliteal cord sign. Distal pulses equal and bilateral PSYCH: Normal affect without agitation or irritability Result Diagram: 11/10/17 1400 11/10/17 1400 Results 24 hrs Laboratory Tests Test 11/10/17 14:00 White Blood Count 9.210^3/ul Red Blood Count 3.7810^6/ul Hemoglobin 10.6g/dl Hematocrit 34.4% Mean Corpuscular Volume 91.0fl Mean Corpuscular Hemoglobin 28.0pg Mean Corpuscular Hemoglobin Concent 30.8g/dl Red Cell Distribution Width 15.1% Platelet Count 86624^3/UL Mean Platelet Volume 10.6fl Neutrophils % 64.7% Lymphocytes % 24.7% Monocytes % 7.6% Eosinophils % 2.2% Basophils % 0.5% Nucleated Red Blood Cells % 0.0/100WBC Neutrophils # 6.010^3/ul Lymphocytes # 2.310^3/ul Monocytes # 0.710^3/ul Eosinophils # 0.210^3/ul Basophils # 0.110^3/ul Nucleated Red Blood Cells # 0.010^3/ul Prothrombin Time 12.2Sec Prothrombin Time Ratio 1.0 INR International Normalized Ratio 0.90 Sodium Level 139mmol/L Potassium Level 3.3mmol/L Chloride Level 101mmol/L Carbon Dioxide Level 25mmol/L Anion Gap 16 Blood Urea Nitrogen 10mg/dl Creatinine 0.69mg/dl Glucose Level 86mg/dl Calcium Level 9.1mg/dl Current Medications Medications (Trade) Dose Ordered Sig/Shanae Route PRN Reason Start Time Stop Time Status Last Admin Dose Admin Sodium Chloride (NS) 1,000 ml @ 1,000 mls/hr Q1H STAT IV 11/10/17 13:55 11/10/17 14:54 11/10/17 14:15 Ketorolac Tromethamine (Toradol) 15 mg ONCE STAT IV 11/10/17 13:55 11/10/17 13:56 DC 11/10/17 14:14 Procedures/MDM I consulted her surgeon Dr. Rubin, who recommended removal of both tubes and follow-up in his office on November 17. We discussed the patient's symptoms, findings, and ED workup. He recommended against any further imaging, IV antibiotics, or admission. I administered 1 L normal saline intravenously, Toradol 15 mg IV 1 and hydromorphone 1 mg IV 1. Tubes were removed by me at the bedside, and patient tolerated procedure well, there was no purulent discharge or bleeding from the tube insertion sites. CBC and electrolytes were normal. Differential diagnoses considered, included but not limited to acute coronary syndrome, pulmonary embolism, aortic dissection, abdominal aortic aneurysm, sepsis, stroke, meningitis, encephalitis, pneumonia, appendicitis, cholecystitis , bowel obstruction, pyelonephritis, nephrolithiasis, cystitis, as well as metabolic, hematologic, and electrolyte abnormalities. As well as abscess, cellulitis, fractures, and dislocations. Patient feels much better at this time, and vital signs are normal, symptoms have improved. I did give strict instructions to return to the ED if symptoms continue or worsen, patient will otherwise follow-up with primary care physician. Patient understood instructions and agreed to plan. Disclaimer: Inadvertent spelling and grammatical errors are likely due to EHR/ dictation software use and do not reflect on the overall quality of patient care. Also, please note that the electronic time recorded on this note does not necessarily reflect the actual time of the patient encounter. Departure Diagnosis: Primary Impression: Postoperative pain Condition: Good Patient Instructions: Post Op Wound Check, Pain Referrals: BEAU RUBIN MD, DAVID MD Nov 10, 2017 14:50
[2017-11-10 15:22] VITALS: BP 127/79; PULSE 81; RESP 20; TEMP 99.1
== END 2017-11-10 15:25 | disposition home or self-care (01) ==
LOC: FTE 12:46 → E/R 15:25
DX: G89.18 Other acute postprocedural pain (principal); N64.4 Mastodynia; I10 Essential (primary) hypertension; Z85.3 Personal history of malignant neoplasm of breast
CPT/HCPCS: 36415; 80048; 85025; 85610; 96374; 96375; J1170; J1885; J7030; Z7502

== ENCOUNTER 2017-11-13 14:42 | Inpatient (IN) | END 2017-11-16 17:45 | disposition home health service (06) | DRG 863 ==